=== PATIENT | male | born 1985 | race American Indian/Alaskan Native ===

== ENCOUNTER 2018-02-12 10:16 | Emergency (ER) | payer OTHER ==
[2018-02-12] MEDS ORDERED: MOTRIN PO ONE (14:05)
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
[2018-02-12] MEDS ORDERED: FLEXERIL PO ONE (14:23)
--- NOTE | 2018-02-12 14:59 | Cat Scan Report ---
FINAL REPORT PROCEDURE: CT HEAD/BRAIN WO CON TECHNIQUE: Computerized tomography of the head was performed without contrast material. HISTORY: headache COMPARISON: No prior studies are available for comparison. FINDINGS: Brain: Brain density appears normal. No evidence of intracranial hemorrhage. No parenchymal hemorrhage, mass lesions or mass effect are seen. No abnormal extraxial fluid collects or masses are seen. Ventricles: Ventricles are normal size and are midline. Bone Windows: No evidence of skull fracture. Paranasal sinuses: Visualized portions appear clear. Mastoid air cells: Clear IMPRESSION: Negative examination
--- NOTE | 2018-02-12 15:00 | Cat Scan Report ---
FINAL REPORT PROCEDURE: CT CERVICAL SPINE WO CON TECHNIQUE: Computerized tomography of the cervical spine was performed from the skull base to T1 without contrast material. HISTORY: cervical neck pain COMPARISON: No prior studies are available for comparison. FINDINGS: No fracture or subluxation is seen. Prevertebral soft tissues appear normal. The posterior elements are intact. Disc spaces are well preserved. No focal disc herniations or spinal stenosis are identified. Minimal anterior osteophytic spurring is visualized at C6-C7. IMPRESSION: Minimal degenerative disc disease C6-C7 level as described otherwise negative exam..
[2018-02-12 16:19] VITALS: BP 140/91
== END 2018-02-12 16:19 | disposition home or self-care (01) ==
LOC: ED 10:16
DX: S13.4XXA Sprain of ligaments of cervical spine, initial encounter (principal); R51 Headache; I10 Essential (primary) hypertension; F17.200 Nicotine dependence, unspecified, uncomplicated; V49.49XA Driver injured in collision with other motor vehicles in traffic accident, initial encounter; Y93.89 Activity, other specified; Y92.89 Other specified places as the place of occurrence of the external cause; Y99.8 Other external cause status
CPT/HCPCS: 70450; 72125